=== PATIENT | female | born 1995 | race African-American/Black ===

== ENCOUNTER 2020-08-05 07:30 | Inpatient (IN) | payer OTHER ==
[2020-08-05] MEDS ORDERED: BUTORPHANOL TARTRATE 2 MG/ML VIAL IVPB ONE (08:33)
[2020-08-05] MEDS ORDERED: PROMETHAZINE HCL 25 MG/1 ML VIAL IVPUSH ONE (08:33)
--- OUTSIDE RECORDS SUMMARY | 2020-08-05 08:33 | XMS ---
:1995 Author Organization [facility] Support Name Relationship Address Phone GINA HAGEN [address] [place] [address] [facility] [place] [address] GINA PERALES [address] [place] [address] Re-disclosure Warning The records that you are about to access may contain information from federally- assisted alcohol or drug abuse programs. If such information is present, then the following federally mandated warning applies: This information has been disclosed to you from records protected by federal confidentiality rules (42 CFR part 2). The federal rules prohibit you from making any further disclosure of this information unless further disclosure is expressly permitted by the written consent of the person to whom it pertains or as otherwise permitted by 42 CFR part 2. A general authorization for the release of medical or other information is NOT sufficient for this purpose. The Federal rules restrict any use of the information to criminally investigate or prosecute any alcohol or drug abuse patient.The records that you are about to access may contain highly sensitive health information, the redisclosure of which is protected by Article 27-F of the [facility] Public Health law. If you continue you may haveaccess to information: Regarding HIV / AIDS; Provided by facilities licensed or operated by the [facility] Office of Mental Health; or Provided by the [facility] Office for People With Developmental Disabilities. If such information is present, then the following [facility] mandated warning applies: This information has been disclosed to you from confidential records which are protected by state law. State law prohibits you from making any further disclosure of this information without the specific written consent of the person to whom it pertains, or as otherwise permitted by law. Any unauthorized further disclosure in violation of state law may result in a fine or usp sentence or both. A general authorization for the release of medical or other information is NOT sufficient authorization for further disclosure. Insurance Providers Payer name Policy type Policy ID Covered Covered green party's Policy P danny / Coverage green party ID relationship to [facility] type villan[place]va JERI [id number] [address] [facility] CAP
[2020-08-05] MEDS ORDERED: AMPICILLIN - 2 GM in SODIUM CHLORIDE 100 ML IVPB ONE (08:36)
--- NOTE | 2020-08-05 08:40 | HP ---
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: No: Alzheimer's, CVA, Dementia, Migraine, Multiple Sclerosis, Peripheral Neuropathy, Parkinson's, Seizure, Syncope, TIA, Vertigo, Other Cardiovascular: No: AFIB, Aneurysm, Aortic Insufficiency, Aortic Stenosis, CAD, CHF, Deep Vein Thrombosis, HTN, Hyperlipdemia, OR, Mitral Insufficiency, Mitral Stenosis, Murmur, Pulmonary Hypertension, Other Pulmonary: No: Asthma, Bronchitis, Cancer, COPD, O2 Dependent, Pneumonia, Previously Intubated, Pulmonary Embolus, Pulmonary Fibrosis, Sleep Apnea, Other Gastrointestinal: No: Ascites, Cancer, Constipation, Crohn's Disease, Diverticulitis, Diverticulosis, Esophageal Varices, Gastritis, GERD, GI Bleed, Hemorrhoids, Hiatal Hernia, Inflamatory Bowel Disease, Irritable Bowel Disease, Pancreatitis, Peptic Ulcer Disease, Ulcerative Colitis, Other Hepatobiliary: No: Cirrhosis, Cholelithiasis, Cholecystitis, Choledocholithiasis, Hepatitis A, Hepatitis B, Hepatitis C, Other Renal/: No: Renal Failure, Renal Inusuff, BPH, Cancer, Hematuria, Hemodialysis , Neurogenic Bladder, Renal Calculi, UTI, Other Reproductive: No: Ectopic , Endometriosis, Fibroids, PID, Polycystic Ovary Syndrome, Postmenopausal, Other Heme/Onc: No: Anemia, B12 Deficiency, Bleeding Disorder, Cancer, Current Chemotherapy, Current Radiation Therapy, Hemochromatosis, Hypercoaguable State, Myeloproliferative Synd, Sickle Cell Disease, Sickle Cell Trait, Thrombocytopenia, Other Infectious Disease: No: AIDS, C-Diff, Herpes Zoster, HIV, MRSA, STD's, Tuberculosis, VREF, Other Psych: No: Addictions, Anxiety, Bipolar, Depression, Panic, Psychosis, Schizophrenia, Other Musculoskeletal: No: Bursitis, Chronic low back pain, Hemiparesis, Hemiplegia, O steoarthritis, Paraplegia, Other Rheumatology: No: Fibromyalgia, Gout, Lupus, Rheumatoid Arthritis, Sarcoidosis, Vasculitis, Other ENT: No: Allergic Rhinitis, Sinusitis, Other Endocrine: No: Owen's Disease, Dallas's Disease, Diabetes Insipidus, Diabetes Mellitus, Hyperparathyroidism, Hyperthyroidism, Hypothyroidism, Ost eopenia, SIADH, Other Dermatology: No: Basal Cell, Cellulitis, Eczema, Melanoma, Psoriasis, Squamous Cell, Other - Past Surgical History Past Surgical History: No: None, AAA Repair, AICD, Amputation, Appendectomy, Arthrosocopy, AV Fistula/Graft, Bariatric Surgery, Breast Biopsy, Bypass, CABG, Carotid Endarterectomy, Cataract Removal, Cholecystectomy, Colectomy, Colonoscopy, Colostomy, Craniotomy, , Cystectomy, Hernia Repair, Hysterectomy, Ileal Conduit, Ileosotomy, Joint Replacement, Kidney Transplant, Laminectomy, Liver Transplant, Mastectomy, Nephrectomy, Oopherectomy, Orchiectomy, Permanent Pacemaker, Prostatectomy, Splenectomy, Stent, Thoracotomy, TURP, Tonsillectomy, Tubal Ligation, Upper Endoscopy, Valve Replace ment, Vasectomy, Vein Stripping/Ligation Hx Myomectomy: No Hx Transabdominal Cerclage: No - Advance Directives Advance Directives: Yes: Living Will - Smoking History Smoking history: Never smoked Have you smoked in the past 12 months: No - Alcohol/Substance Use Hx Alcohol Use: No History of Substance Use: reports: None - Social History Usual Living Arrangement: Yes: With Significant Other Do you think of yourself as: Straight/Heterosexual ADL: Independent History of Recent Travel: No Home Medications - Allergies Allergies/Adverse Reactions: Allergies Allergy/AdvReac Type Severity Reaction Status Date / Time No Known Allergies Allergy Verified 08/05/20 08:30 - Home Medications Home Medications: Ambulatory Orders Pnv No.95/Ferrous Fum/Folic AC [ Vitamin Tablet] 1 each PO DAILY 08/05/20 Family Medical History Family History: Denies Review of Systems - Review of Systems Constitutional: reports: No Symptoms Eyes: reports: No Symptoms HENT: reports: No Symptoms Neck: reports: No Symptoms Cardiovascular: reports: No Symptoms Respiratory: reports: No Symptoms Gastrointestinal: reports: No Symptoms Genitourinary: reports: No Symptoms Breasts: reports: No Symptoms Reported Musculoskeletal: reports: No Symptoms Integumentary: reports: No Symptoms Neurological: reports: No Symptoms Endocrine: reports: No Symptoms Hematology/Lymphatic: reports: No Symptoms Psychiatric: reports: No Symptoms 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 - Maternity Constitutional: Yes: Well Nourished, No Distress, Calm Eyes: Yes: WNL, Conjunctiva Clear, EOM Intact HENT: Yes: WNL, Atraumatic, Normocephalic Neck: Yes: WNL, Supple, Trachea Midline Cardiovascular: Yes: WNL, Regular Rate and Rhythm Lungs: Clear to auscultation Breast(s): Yes: WNL - Abdominal Exam/OB Fundal Height: 40 Number of Fetuses: Single Presentation: Vertex Contractions: Yes Regularity: Regular Intensity: Mild/Mod Monitor Mode: External Heart Rate (range): 150 Heart Rate Location: LLQ Accelerations: Uniform Decelerations: None - Vaginal Exam/OB Vaginal Bleeding: No Speculum Exam: No Dilatation (cm): 1 Effacement (%): 50 Amniotic Membrane Status: Intact Presentation: Vertex/Position Station: -2 - 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 Musculoskeletal: Yes: WNL Extremities: Yes: WNL Edema: Yes Edema: LUE: 1+, RUE: 1+, LLE: 1+, RLE: 1+ Integumentary: Yes: WNL Deep Tendon Reflex Grade: Normal +2 ...Motor Strength: WNL Psychiatric: Yes: WNL, Alert, Oriented Hemorrhage Risk Assessment - Risk Factors Medium Risk Factors: Yes: None High Risk Factors: Yes: None Risk Score: 1 Risk Level: Medium Risk Assessment/Plan anticipate ,
[2020-08-05] MEDS ORDERED: ELECTROLYTE-148 SOLN 1,000 ML IV SCH (08:45)
[2020-08-05] MEDS ORDERED: AMPICILLIN SODIUM 2 GM VIAL ONE (09:13)
[2020-08-05 09:32] LABS: BASO % 0.1 % (0-2.0); EOS % 0.3 % (0-4.5); HEMATOCRIT 37.8 % (32.4-45.2); HEMOGLOBIN 13.2 GM/dL (10.7-15.3); LYMPH % 16.1 % (8-40); MCH 32.2 pg (25.7-33.7); MCHC 34.9 g/dl (32.0-36.0); MEAN CELL VOLUME 92.2 fl (80-96); MEAN PLT VOLUME 7.7 fl (7.5-11.1); MONO % 8.5 % (3.8-10.2); PLATELET COUNT 244 K/MM3 (134-434); RBC 4.11 M/mm3 (3.60-5.2); RDW 13.8 % (11.6-15.6); WHITE BLOOD COUNT 7.6 K/mm3 (4.0-10.0)
[2020-08-05 09:36] LABS: INR 0.94 (0.83-1.09); PROTHROMBIN TIME (PATIENT) 11.6 SEC (9.7-13.0)
[2020-08-05 09:42] VITALS: BMI 28.8
[2020-08-05 09:45] LABS: POTASSIUM 3.7 mmol/L (3.5-5.1)
[2020-08-05 09:46] LABS: BLOOD UREA NITROGEN 8.2 mg/dL (7-18); CALCIUM 8.7 mg/dL (8.5-10.1)
[2020-08-05] MEDS ORDERED: PROMETHAZINE HCL 25 MG/1 ML VIAL ONE (09:46)
[2020-08-05] MEDS ORDERED: BUTORPHANOL TARTRATE 2 MG/ML VIAL ONE (09:46)
[2020-08-05 09:49] LABS: CREATININE 0.6 mg/dL (0.55-1.3)
--- NOTE | 2020-08-05 11:13 | PN ---
Progress Note (short form) - Note Progress Note: 11 am, srom, 4 cm, 50 %, -3, nst cat 1, uc q 5 min, declined offered of epidural,
[2020-08-05] MEDS ORDERED: FENTANYL/BUPIVACAINE/NS/PF - PCEA - 50 ML DISP.SYRIN EP ONE ×2 (11:40→15:28)
[2020-08-05] MEDS ORDERED: PCA PUMP NR ONE (11:40)
[2020-08-05] MEDS ORDERED: NALOXONE HCL 0.4 MG/ML VIAL IVPUSH PRN (12:29)
[2020-08-05] MEDS ORDERED: FENTANYL/BUPIVACAINE/NS/PF - PCEA - 50 ML DISP.SYRIN EP SCH (12:30)
[2020-08-05] MEDS ORDERED: AMPICILLIN SODIUM 1 GM VIAL ONE ×2 (13:12→16:29)
[2020-08-05] MEDS: AMPICILLIN - 1 GM in SODIUM CHLORIDE 100 ML IVPB SCH ×3 (13:15→20:43)
[2020-08-05] MEDS ORDERED: OXYTOCIN 30 UNITS in 0.9% NS 30 UNIT/500 ML INFUS.BAG IVPB ONE (14:17)
[2020-08-05] MEDS ORDERED: OXYTOCIN 30 UNITS in 0.9% NS 30 UNIT/500 ML INFUS.BAG IVPB SCH (14:45)
--- NOTE | 2020-08-05 15:17 | PN ---
Progress Note (short form) - Note Progress Note: 15:05 hrs. Labor augmented. Good ctx. Epidural in place. Called to pt. because of deep variable decel. Good variabilty. Followed by 3-4 min of bradycardia w good recovery, D/eduarda Pit. LL position, O2. C is 9 cm, 90%, LOT, -1. This is cat 2. Pl: Observe, c/s ready.
--- NOTE | 2020-08-05 16:36 | PN ---
Progress Note (short form) - Note Progress Note: 16:20 hrs. Comfortable. FH cat 2/. No decels, good variability. Pc: ant. rim. LOT to EMMANUEL. Sta -1/0. Back on low dose Oxytocin. Lower epidural for pt. to feel rectal pressure. Discussed with pt. - will start pushing in 15-30 min. C/section if FH deteriorates.
[2020-08-05] MEDS ORDERED: LIDOCAINE HCL 1% PRESERVATIVE FREE - 30ML VIAL ONE (16:51)
[2020-08-05] MEDS ORDERED: OXYTOCIN 20 UNITS in 0.9% NS 20 UNIT/1,000 ML INFUS.BAG IV ONE (16:51)
[2020-08-05] MEDS ORDERED: PHENYLEPHRINE HCL 10 MG/1 ML SINGLE DOSE VIAL ONE (17:31)
[2020-08-05] MEDS ORDERED: ceFAZolin SODIUM 1 GM VIAL ONE (17:31)
[2020-08-05] MEDS ORDERED: OXYTOCIN 10 UNITS/ML VIAL ONE (17:52)
[2020-08-05] MEDS ORDERED: KETOROLAC TROMETHAMINE 30 MG/1 ML VIAL ONE (18:02)
[2020-08-05] MEDS ORDERED: morphine SULFATE/PF 0.5 MG/ML (2cc Syringe - QUVA) EP ONE (18:47)
--- NOTE | 2020-08-05 18:51 | PN ---
Progress Note (short form) - Note Progress Note: 17:20 hrs. Pushing very well for about an hour. head molded, but still -1/0. LOT persistent. FH cat 2. Pt. is exhausted. Discussed w couple. Will deliver by c/section. All fully discussed.
[2020-08-05] MEDS ORDERED: ACETAMINOPHEN 325 MG TABLET (FP) PO PRN (18:56)
[2020-08-05] MEDS ORDERED: ONDANSETRON 4 MG/2 ML VIAL IVPB PRN (18:56)
[2020-08-05] MEDS ORDERED: SENNOSIDES/DOCUSATE COMBO (SENNA PLUS) TABLET (UD) PO PRN (18:56)
[2020-08-05] MEDS ORDERED: IBUPROFEN 600 MG TABLET (FP) PO PRN (18:56)
[2020-08-05] MEDS ORDERED: ACETAMINOPHEN 1000 MG/100 ML VIAL (NON FORMULARY) IVPB PRN (18:56)
[2020-08-05] MEDS ORDERED: OXYTOCIN 20 UNITS in 0.9% NS 20 UNIT/1,000 ML INFUS.BAG IV SCH (19:00)
[2020-08-05] MEDS ORDERED: CITRIC ACID/SODIUM CITRATE 30 ML UNIT-DOSE CUP PO ONE (19:00)
--- NOTE | 2020-08-05 19:50 | PN ---
Delivery - Delivery Section: Primary, Low Flap Transverse Type of Anesthesia: Epidural Episiotomy/Laceration: None EBL (cc): 500 Delivery, Single - Stages of Labor Date 1st Stage Initiatied: 08/05/20 Time 1st Stage Initiated: 04:00 Date 2nd Stage Initiated: 08/05/20 Time 2nd Stage Initiated: 16:50 Date of Delivery: 08/05/20 Time of Delivery: 18:01 Time Placenta Delivered: 18:02 - Condition of Infant Milling Operator/Door Opener Present: Yes Name: Amber Caro Gender: Female Weight: 6 lb 10 oz Position: Left, OT Total Hours ROM (Hrs/Mins): 7HRS 32MIN - 1 Minute Total Score: 9 5 Minutes Total Score: 9 - [place] Feeding Plan Initial Plan: Elected not to breastfeed exclusively throughout hospitalization
[2020-08-05] MEDS: IBUPROFEN 800 MG/8 ML IJ IVPB PRN (20:53)
[2020-08-06] MEDS: CEFAZOLIN 2 GM/D5W 2 GM/50 ML ML IVPB SCH ×3 (02:02→19:34)
--- NOTE | 2020-08-06 08:04 | PN ---
Progress Note (short form) - Note Progress Note: Anesthesia Post op/pain Pt seen and examined S:Alert and awake comfortable with mild residual pain O: Vital Signs Temperature 98.1 F 08/06/20 04:00 Pulse Rate 90 08/06/20 04:00 Respiratory Rate 18 08/06/20 06:00 Blood Pressure 117/77 08/06/20 04:00 O2 Sat by Pulse Oximetry (%) 100 08/05/20 19:45 CBC, BMP 08/05/20 08:50 08/05/20 08:50 A/P: s/p c section Doing well post op Continue current care Oswaldo Benavidez MD
--- NOTE | 2020-08-06 08:08 | PN ---
Post Progress Note - Subjective Subjective: Feels well, recovering. Post Day: 1 Type of Delivery: Primary C/S Vital Signs: Vital Signs Temperature 98.1 F 08/06/20 04:00 Pulse Rate 90 08/06/20 04:00 Respiratory Rate 18 08/06/20 06:00 Blood Pressure 117/77 08/06/20 04:00 O2 Sat by Pulse Oximetry (%) 100 08/05/20 19:45 Breast Exam: Yes: Soft Uterus: Yes: Fundus Firm Incision: Yes: Dressing dry and intact (dressing removed.), Sutures intact (Clean and dry.) Abdomen/GI: Yes: Abdomen soft, Tolerating PO Lochia: Yes: Rubra Lochia, amount: Small Extremities: Yes: Calves non-tender - Labs Labs: CBC WBC 7.6 K/mm3 (4.0-10.0) 08/05/20 08:50 RBC 4.11 M/mm3 (3.60-5.2) 08/05/20 08:50 Hgb 13.2 GM/dL (10.7-15.3) 08/05/20 08:50 Hct 37.8 % (32.4-45.2) 08/05/20 08:50 MCV 92.2 fl (80-96) 08/05/20 08:50 MCH 32.2 pg (25.7-33.7) 08/05/20 08:50 MCHC 34.9 g/dl (32.0-36.0) 08/05/20 08:50 RDW 13.8 % (11.6-15.6) 08/05/20 08:50 Plt Count 244 K/MM3 (134-434) D 08/05/20 08:50 MPV 7.7 fl (7.5-11.1) 08/05/20 08:50 Absolute Neuts (auto) 5.7 K/mm3 (1.5-8.0) 08/05/20 08:50 Neutrophils % 75.0 % (42.8-82.8) 08/05/20 08:50 Lymphocytes % 16.1 % (8-40) 08/05/20 08:50 Monocytes % 8.5 % (3.8-10.2) 08/05/20 08:50 Eosinophils % 0.3 % (0-4.5) 08/05/20 08:50 Basophils % 0.1 % (0-2.0) 08/05/20 08:50 Nucleated RBC % 0 % (0-0) 08/05/20 08:50 Problem List - Problems (1) Postop check Code(s): Z09 - ENCNTR FOR F/U EXAM AFT TRTMT FOR COND OTH THAN MALIG NEOPLM Assessment/Plan Feels well, recovering. Pain under control. Wound clean. OOB, reg. diet.
[2020-08-06] MEDS: IBUPROFEN 800 MG/8 ML IJ IVPB PRN (08:10)
[2020-08-06] MEDS: SIMETHICONE 80 MG TAB.CHEW (FP) PO PRN ×3 (08:16→18:40)
[2020-08-06 08:30] LABS: BASO % 0.2 % (0-2.0); EOS % 0.2 % (0-4.5); HEMATOCRIT 36.5 % (32.4-45.2); HEMOGLOBIN 12.2 GM/dL (10.7-15.3); LYMPH % 8.9 % (8-40); MCH 31.3 pg (25.7-33.7); MCHC 33.5 g/dl (32.0-36.0); MEAN CELL VOLUME 93.4 fl (80-96); MEAN PLT VOLUME 7.6 fl (7.5-11.1); MONO % 7.7 % (3.8-10.2); PLATELET COUNT 214 K/MM3 (134-434); WHITE BLOOD COUNT 16.7 K/mm3 (4.0-10.0)
--- NOTE | 2020-08-06 08:53 | OP ---
DATE OF OPERATION: DATE OF DICTATION: 08/05/2020 PREOPERATIVE DIAGNOSES: 1. Intrauterine at term in labor, failure to descend. 2. Suspect cephalopelvic disproportion. 3. Nonreassuring heart tracing. POSTOPERATIVE DIAGNOSES: 1. Intrauterine at term in labor, failure to descend. 2. Suspect cephalopelvic disproportion. 3. Nonreassuring heart tracing. PROCEDURE: Primary low segment transverse section. SURGEON: Ashely De Jesus MD WATCH GUARD GATE: Maame Johnson MD ANESTHESIOLOGIST: Carola Merlos MD ANESTHESIA: Epidural. NEONATOLOGY: Amber Caro MD PROCDURE & FINDINGS: Under excellent, epidural block in dorsal supine position with left lateral tilt, patient was prepped and draped in the normal fashion. An old scar was removed. Incision was extended. It was a Pfannenstiel previous scar from ectopic . The incision was carried down transversely through subcutaneous tissue and fascia was opened transversely as well. The recti muscles were dissected off the fascia and divided in the midline. Peritoneum was entered in the upper part and extended vertically. Lower uterine segment was exposed with bulging, unengaged head pushing out. Bladder flap was incised and peeled off the lower uterine segment. Hysterotomy was performed transversely and live female infant was delivered, cried and breathed spontaneously. Baby was given 's 9 and 9. Cord was divided and baby was handed over to the team. Some fresh meconium was noted as well. Cord was around the neck x1. Placenta was removed. Uterine cavity was cleaned. Hysterotomy was closed with continuous running interlocking Biosyn 0 suture. One bleeding spot was secured with mattress Biosyn 0 suture. Lavage was carried out. Hemostasis was confirmed. Uterus was placed physiologically in the abdomen. Tubes and ovaries were within normal limits. The incision was rechecked and hemostasis was again confirmed to be complete. Sponge, instrument and needles count was correct. Abdomen was closed in layers. Peritoneum was closed with continuous running Biosyn 2-0 suture, fascia with continuous running Vicryl 1 suture, subcutaneous tissue with continuous running Biosyn 2-0 suture and skin was approximated with subcuticular continuous running Vicryl 3-0 suture and Steri-Strips. Blood loss was 500 mL. Urine was ample in the Nunes catheter bag and was slightly blood tinged which started already during labor. Sterile dressing was applied and held with a binder. Patient was transferred to the postop unit stable, comfortable and completely awake. ASHELY DE JESUS MD [id number]
[2020-08-06] MEDS: ACETAMINOPHEN 325 MG TABLET (FP) PO PRN ×2 (13:36→18:40)
[2020-08-06] MEDS: BISACODYL 10 MG SUPP.RECT RC PRN (18:40)
[2020-08-06] MEDS: IBUPROFEN 600 MG TABLET (FP) PO PRN (18:41)
[2020-08-07] MEDS: SIMETHICONE 80 MG TAB.CHEW (FP) PO PRN ×4 (00:13→21:45)
[2020-08-07] MEDS: ACETAMINOPHEN 325 MG TABLET (FP) PO PRN ×4 (00:13→21:44)
[2020-08-07] MEDS: IBUPROFEN 600 MG TABLET (FP) PO PRN ×3 (00:14→17:19)
[2020-08-07] MEDS: BISACODYL 10 MG SUPP.RECT RC PRN (15:05)
[2020-08-07] MEDS: oxyCODONE HCL 5 MG TABLET PO PRN (21:44)
[2020-08-08] MEDS: ACETAMINOPHEN 325 MG TABLET (FP) PO PRN (05:03)
[2020-08-08] MEDS: oxyCODONE HCL 5 MG TABLET PO PRN (05:03)
[2020-08-08] MEDS: SIMETHICONE 80 MG TAB.CHEW (FP) PO PRN (05:04)
--- NOTE | 2020-08-08 06:32 | PN ---
Progress Note (short form) - Note Progress Note: Stable. Doing very well. Healing. Discharge. Problem List - Problems (1) Postop check Code(s): Z09 - ENCNTR FOR F/U EXAM AFT TRTMT FOR COND OTH ROGELIO BROWN
--- NOTE | 2020-08-08 06:35 | DS ---
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 Vital Signs: Vital Signs Temperature 98.7 F 08/07/20 22:00 Pulse Rate 60 08/07/20 22:00 Respiratory Rate 18 08/07/20 22:00 Blood Pressure 128/83 08/07/20 22:00 O2 Sat by Pulse Oximetry (%) 99 08/07/20 22:00 Constitutional: Yes: Well Nourished, No Distress, Calm Eyes: Yes: WNL, Conjunctiva Clear, EOM Intact HENT: Yes: WNL, Atraumatic, Normocephalic Neck: Yes: WNL, Supple, Trachea Midline Cardiovascular: Yes: WNL, Regular Rate and Rhythm Respiratory: Yes: WNL, Regular, CTA Bilaterally Gastrointestinal: Yes: WNL, Normal Bowel Sounds, Soft (Incision clean and dry.) ...Rectal Exam: Yes: WNL Renal/: Yes: WNL Pelvis: Yes: WNL External Genitalia: Yes: Normal Internal Exam Deferred: Yes ....Post : Yes: Uterus firm, Uterus non-tender Breast(s): Yes: WNL Musculoskeletal: Yes: WNL Extremities: Yes: WNL Integumentary: Yes: WNL Neurological: Yes: WNL, Alert, Oriented ...Motor Strength: WNL Psychiatric: Yes: WNL, Alert, Oriented Labs: CBC, BMP 08/06/20 07:34 08/05/20 08:50 Delivery - Delivery Section: Primary, Low Flap Transverse Type of Anesthesia: Epidural Episiotomy/Laceration: None EBL (cc): 500 Delivery, Single - Stages of Labor Date 1st Stage Initiatied: 08/05/20 Time 1st Stage Initiated: 04:00 Date 2nd Stage Initiated: 08/05/20 Time 2nd Stage Initiated: 16:50 Date of Delivery: 08/05/20 Time of Delivery: 18:01 Time Placenta Delivered: 18:02 - Condition of Infant Distribution Center Manager/Wool And Pelt Grader Present: Yes Name: Amber Caro Infant Gender: Female Weight: 6 lb 10 oz Position: Left, OT Total Hours ROM (Hrs/Mins): 7HRS 32MIN - 1 Minute Total Score: 9 5 Minutes Total Score: 9 - [place] Feeding Plan Initial Plan: Elected not to breastfeed exclusively throughout hospitalization Remarks - Remarks Remarks: Excellent recovery. Discharge Summary Problems reviewed: Yes Reason For Visit: LABOR ADMIT Current Active Problems Postop check (Acute) Procedures: Principal: c/section Hospital Course: uneventful Condition: Good - Instructions Diet, Activity, Other Instructions: Physical activity Resume your normal everyday activity as tolerated no heavy lifting or exercise until seen by your surgeon. You may walk unlimited brooklynn of and climb stairs. You may resume driving the car when you feel safe and comfortable behind the wheel. No sexual activity as instructed. Wound care If you have a bandage, leave it on, and keep dry for 48-72 hours. After that time discard the outer bandage. If they are tapes on the skin under the out of bandage leave them in place. They will peel off in the next 7 to 10 days. Do Not Peel them off till 10 days after surgery. You may shower the day after surgery. If there are tapes present on the skin, you may shower over them. Diet There are no dietary restrictions. Eat healthy, high-fiber foods. Drink 6 to 8 glasses of liquid each day. This will assist in keeping your bowels are regular. Pain management You may take Tylenol or acetaminophen or Ibuprofen (for example, Motrin, Advil etc.) from my pain prescription medication is ordered should be taken as prescribed for moderate to severe pain. Call MD for any of the following: Severe pain not relieved by medication Fever of 101 or higher Excessive bleeding or drainage on dressing Inability to urinate Disposition: HOME - Home Medications Comprehensive Discharge Medication List: Ambulatory Orders Pnv No.95/Ferrous Fum/Folic AC [ Vitamin Tablet] 1 each PO DAILY 08/05/20
[2020-08-08] MEDS: IBUPROFEN 600 MG TABLET (FP) PO PRN (08:20)
[2020-08-08 09:36] VITALS: BP 116/72; PULSE 82; TEMP 98.1
--- NOTE | 2020-08-10 10:41 | PATH ---
Surgical Pathology Report Patient Name: ALBINO HAGEN Med. Rec. #: [id number] /Age/Gender: 1995 (Age: 24) / F Account: [id number] Location: [facility] OBS/NURSING HOME ASSISTANT ADMINISTRATOR Taken: 08/05/2020 Received: 08/06/2020 Reported: 08/10/2020 Physicians: Luciano Dia MD Specimen(s) Received PLACENTA Clinical History , 38.4 weeks, nonreassuring heart rate, CPD, failure to descend, SPAB X 1-ectopic with left salpingectomy, IAB X1 Final Diagnosis PLACENTA: THIRD TRIMESTER PLACENTA WITH FOCALLY INCREASED SYNCYTIAL KNOTS AND PERIVILLOUS FIBRIN DEPOSITION. TRIVASCULAR CORD. MEMBRANES WITH INCREASED PIGMENTED MACROPHAGES, CONSISTENT WITH MECONIUM STAINING (MILD). Electronically Signed Michael Ngo M.D. Gross Description The specimen is received fresh labeled placenta and is a 399 gram, 17.5 x 16.5 x 2.4 cm. placenta with attached membranes and umbilical cord. The attached membranes are carter, translucent with focal opacities and insert marginally. The umbilical cord measures 23 cm. in length and averages 1 cm. in diameter. The cord inserts eccentrically, 5 cm. to the nearest margin. No true knots or strictures are identified. Cut surface of the umbilical cord reveals 3 vessels. The surface is adams-blue with minimal fibrin deposition and appropriate caliber vessels. The maternal surface is red-brown with focal defects. Sectioning reveals red-brown, spongy parenchyma. No lesions are identified. Education Research Analyst sections are submitted in three cassettes as follows: 1- membrane rolls and umbilical cord; 2-3- full thickness sections of placenta. /08/08/2020 [facility]/08/08/2020
== END 2020-08-08 13:30 | disposition home or self-care (01) | DRG 540 ==
LOC: JLDR 07:30 → J3W 19:51
PROVIDERS: ADMIT Specialist; ATTEND Specialist
PROC: 10D00Z1 Extraction of Products of Conception, Low, Open Approach (ICD-10-PCS; principal; 2020-08-05)
DX: O32.4XX0 Maternal care for high head at term, not applicable or unspecified (principal); O76 Abnormality in fetal heart rate and rhythm complicating labor and delivery; O33.9 Maternal care for disproportion, unspecified; O99.824 Streptococcus B carrier state complicating childbirth; O75.81 Maternal exhaustion complicating labor and delivery; O69.81X0 Labor and delivery complicated by cord around neck, without compression, not applicable or unspecified; Z3A.38 38 weeks gestation of pregnancy; Z37.0 Single live birth
CPT/HCPCS: 36415; 80048; 85025; 85610; 85730; 86780; 86850; 86900; 86901; 88307-TC; C9803; J0131; U0003